=== PATIENT | male | born 1965 | race Two or more races ===

== ENCOUNTER 2017-01-13 23:05 | Observation (INO) | payer OTHER, BC ==
[2017-01-13] MEDS ORDERED: ONDANSETRON 4 MG/2 ML VIAL ONE (23:14)
[2017-01-13] MEDS ORDERED: fentaNYL 100 MCG/2 ML INJ ONE (23:14)
[2017-01-13] MEDS ORDERED: NS 2,000 ML IV ONE (23:15)
[2017-01-13 23:18] LABS: % IMMATURE GRANULYOCYTES 0.5 % (0.0-1.1); ABSOLUTE IMMATURE GRANULOCYTES 0.05 10^3/uL (0.00-0.10); ADD DIFF? NO; ADD MORPH? NO; ADD SCAN? NO; ATYPICAL LYMPHOCYTE FLAG 0 (0-99); FRAGMENT RBC FLAG 0 (0-99); HEMATOCRIT 45.5 % (40.0-51.0); HEMOGLOBIN 15.7 g/dL (13.7-17.5); LEFT SHIFT FLG 0 (0-99); LIPEMIA HEMOLYSIS FLAG 90 (0-99); MEAN CELL HEMOGLOBIN 32.6 pg (27.9-34.1); MEAN CELL HEMOGLOBIN CONCENTR. 34.5 g/dL (32.4-36.7); MEAN CELL VOLUME 94.4 fL (81.5-99.8); MEAN PLATELET VOLUME 11.2 fL (8.7-11.7); PLATELET CLUMPS FLAG 0 (0-99); PLATELET COUNT 210 10^3/uL (150-400); RED BLOOD CELL COUNT 4.82 10^6/uL (4.40-6.38); RED CELL DISTRIBUTION WIDTH 12.3 % (11.5-15.2)
--- NOTE | 2017-01-13 23:21 | CPEKG ---
Heart Rate: 72 RR Interval: 833 P-R Interval: 172 QRSD Interval: 148 QT Interval: 424 QTC Interval: 465 P [place]: 50 QRS [place]: 20 T Wave [place]: 36 EKG Severity - ABNORMAL ECG - EKG Impression: SINUS RHYTHM EKG Impression: RIGHT BUNDLE BRANCH BLOCK Electronically Signed By: Dejuan Carrington 14-Jan-2017 07:14:39
[2017-01-13 23:27] LABS: INR 0.96 (0.83-1.16); PROTIME(PATIENT) 12.7 SEC (12.0-15.0)
[2017-01-13 23:30] LABS: ANION GAP 16 mEq/L (8-16); CALCIUM 9.5 mg/dL (8.5-10.4); CARBON DIOXIDE 22 mEq/l (22-31); CHLORIDE 106 mEq/L (97-110); CREATININE 0.9 mg/dL (0.7-1.3); ETHANOL SERUM 206 mg/dL (0-10); GLOMERULAR FILTRATION RATE > 60; GLUCOSE 131 mg/dL (70-100); POTASSIUM 3.9 mEq/L (3.5-5.2); SODIUM 144 mEq/L (134-144)
[2017-01-13] MEDS ORDERED: fentaNYL 100 MCG/2 ML INJ IVP ONE (23:30)
[2017-01-13] MEDS ORDERED: ONDANSETRON 4 MG/2 ML VIAL IVP ONE (23:30)
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
[2017-01-13] MEDS ORDERED: IBUPROFEN 600 MG TAB PO PRN (23:54)
[2017-01-13] MEDS ORDERED: NALOXONE HCL 0.4 MG/ML INJ IVP PRN (23:54)
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
[2017-01-14] MEDS ORDERED: IOPAMIDOL (ISOVUE-300) 100 ML BTL IV ONE (01:14)
[2017-01-14] MEDS: ACETAMINOPHEN 325 MG TAB PO PRN ×4 (02:17→21:18)
[2017-01-14] MEDS: ONDANSETRON 4 MG/2 ML VIAL IVP PRN ×2 (07:53→21:19)
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
[2017-01-14] MEDS ORDERED: ENOXAPARIN 40 MG/0.4 ML SYR SC SCH (09:00)
[2017-01-14 19:26] VITALS: RESP 18; O2SAT 93
[2017-01-14 23:13] LABS: COLOR YELLOW; LEUKOCYTE ESTERASE,URINE NEGATIVE (NEGATIVE); MUCUS TRACE /lpf (NONE-1+); NITRITE,URINE NEGATIVE (NEGATIVE)
[2017-01-15] MEDS: ACETAMINOPHEN 325 MG TAB PO PRN (04:40)
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
[2017-01-15 08:02] VITALS: BP 119/74; PULSE 87; TEMP 98
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
== END 2017-01-15 12:02 | disposition home or self-care (01) ==
LOC: EDUNIT# → F3N 01-14 01:20
PROVIDERS: ADMIT Surgery; ATTEND Surgery
DX: S06.5X9A Traumatic subdural hemorrhage with loss of consciousness of unspecified duration, initial encounter (principal); V44.5XXA Car driver injured in collision with heavy transport vehicle or bus in traffic accident, initial encounter; Y92.414 Local residential or business street as the place of occurrence of the external cause
CPT/HCPCS: 70450; 71260; 72125; 73130; 74177; 92523; 93005; 97116; 97161; 97166; 97530; 97535; G0378; 80305; G0480; J2405; J3010; L0174; Q9967

== ENCOUNTER 2017-01-15 13:17 | Emergency (ER) | payer OTHER, BC ==
[2017-01-15 13:27] VITALS: BP 130/83; PULSE 77; RESP 16; TEMP 98.1; O2SAT 96
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
== END 2017-01-15 13:50 | disposition home or self-care (01) ==
DX: S06.5X0D Traumatic subdural hemorrhage without loss of consciousness, subsequent encounter (principal); V89.2XXD Person injured in unspecified motor-vehicle accident, traffic, subsequent encounter

== ENCOUNTER → 2017-01-24 | Outpatient (CLI) | payer OTHER, BC | LOC: FIMAGING 18:07 | PROVIDERS: ATTEND Neurological Surgery | DX: S06.319A Contusion and laceration of right cerebrum with loss of consciousness of unspecified duration, initial encounter (principal); R51 Headache; R68.84 Jaw pain; V89.9XXA Person injured in unspecified vehicle accident, initial encounter ==

== ENCOUNTER 2017-01-28 14:12 | Emergency (ER) | payer OTHER, BC ==
[2017-01-28 14:19] VITALS: RESP 16; TEMP 97.7
--- NOTE | 2017-01-28 14:34 | CPEKG ---
Heart Rate: 73 RR Interval: 822 P-R Interval: 164 QRSD Interval: 130 QT Interval: 400 QTC Interval: 441 P [place]: 42 QRS [place]: 1 T Wave [place]: 26 EKG Severity - ABNORMAL ECG - EKG Impression: SINUS RHYTHM EKG Impression: RIGHT BUNDLE BRANCH BLOCK EKG Impression: COMPARED WITH PRIOR, NO SIG CHANGE Electronically Signed By: Bridgette Frost 01-Feb-2017 13:46:00
[2017-01-28 14:53] LABS: % IMMATURE GRANULYOCYTES 0.3 % (0.0-1.1); ABSOLUTE IMMATURE GRANULOCYTES 0.02 10^3/uL (0.00-0.10); ADD DIFF? NO; ADD MORPH? NO; ADD SCAN? NO; ATYPICAL LYMPHOCYTE FLAG 10 (0-99); FRAGMENT RBC FLAG 0 (0-99); HEMATOCRIT 38.9 % (40.0-51.0); HEMOGLOBIN 13.7 g/dL (13.7-17.5); LEFT SHIFT FLG 0 (0-99); LIPEMIA HEMOLYSIS FLAG 90 (0-99); MEAN CELL HEMOGLOBIN 32.4 pg (27.9-34.1); MEAN CELL HEMOGLOBIN CONCENTR. 35.2 g/dL (32.4-36.7); MEAN PLATELET VOLUME 10.7 fL (8.7-11.7); PLATELET CLUMPS FLAG 0 (0-99); PLATELET COUNT 254 10^3/uL (150-400); RED BLOOD CELL COUNT 4.23 10^6/uL (4.40-6.38); RED CELL DISTRIBUTION WIDTH 12.1 % (11.5-15.2)
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
[2017-01-28 15:11] LABS: ANION GAP 11 mEq/L (8-16); CALCIUM 9.4 mg/dL (8.5-10.4); CARBON DIOXIDE 22 mEq/l (22-31); CHLORIDE 107 mEq/L (97-110); CREATININE 0.8 mg/dL (0.7-1.3); GLOMERULAR FILTRATION RATE > 60; GLUCOSE 126 mg/dL (70-100); POTASSIUM 4.5 mEq/L (3.5-5.2); SODIUM 140 mEq/L (134-144)
[2017-01-28] MEDS ORDERED: ASPIRIN 81 MG CHEWABLE TAB PO ONE (15:17)
[2017-01-28] MEDS ORDERED: NITROGLYCERIN 0.4 MG BTL SL ONE (15:18)
[2017-01-28 15:23] LABS: TROPONIN I < 0.012 ng/mL (0-0.034)
[2017-01-28] MEDS ORDERED: HYDROCODONE/APAP 5/325 TAB PO ONE (16:43)
[2017-01-28 17:20] VITALS: BP 129/69; PULSE 72; O2SAT 95
== END 2017-01-28 17:21 | disposition home or self-care (01) ==
DX: R07.9 Chest pain, unspecified (principal); R68.84 Jaw pain